=== PATIENT | female | born 1940 | race Caucasian/White ===

== ENCOUNTER → 2020-01-11 | Outpatient (CLI) | payer MEDICARE ==
[~2020-01-11] MED LIST: OMNIPAQUE 350 MG/ML, 100ML BOTTLE ONE
[2020-01-11 10:39] LABS: CREATININE 1.41 mg/dL (0.55-1.02)
== END | disposition home or self-care (01) ==
LOC: RAD 09:56
PROVIDERS: ATTEND Internal Medicine
DX: C18.7 Malignant neoplasm of sigmoid colon (principal); R91.8 Other nonspecific abnormal finding of lung field; G31.9 Degenerative disease of nervous system, unspecified; R59.0 Localized enlarged lymph nodes; M51.36 Other intervertebral disc degeneration, lumbar region; R59.9 Enlarged lymph nodes, unspecified
CPT/HCPCS: 36415; 70460; 71260; 74177; 78306; 82565; A9503; Q9967

== ENCOUNTER → 2020-05-02 | Outpatient (CLI) | payer MEDICARE | END | disposition home or self-care (01) | LOC: CFH 11:45 | PROVIDERS: ATTEND Internal Medicine | DX: C78.7 Secondary malignant neoplasm of liver and intrahepatic bile duct (principal); C18.7 Malignant neoplasm of sigmoid colon; K86.89 Other specified diseases of pancreas; R91.8 Other nonspecific abnormal finding of lung field; R59.0 Localized enlarged lymph nodes; Z79.01 Long term (current) use of anticoagulants | CPT/HCPCS: 71260; 74177; Q9967 ==

== ENCOUNTER → 2020-08-01 | Outpatient (CLI) | payer MEDICARE | END | disposition home or self-care (01) | LOC: CFH 10:14 | PROVIDERS: ATTEND Internal Medicine | DX: C78.7 Secondary malignant neoplasm of liver and intrahepatic bile duct (principal); R91.8 Other nonspecific abnormal finding of lung field; M51.36 Other intervertebral disc degeneration, lumbar region; R59.9 Enlarged lymph nodes, unspecified; Z79.01 Long term (current) use of anticoagulants | CPT/HCPCS: 71260; 74177; Q9967 ==

== ENCOUNTER 2020-08-30 09:21 | Outpatient (CLI) | payer MEDICARE | END 2020-08-30 23:59 | disposition home or self-care (01) | LOC: RAD 09:21 | PROVIDERS: ATTEND Internal Medicine | DX: Z02.9 Encounter for administrative examinations, unspecified (principal) ==